=== PATIENT | male | born 1980 | race African-American/Black ===

== ENCOUNTER 2017-06-07 18:43 | Emergency (ER) | payer SELFPAY ==
[~2017-06-07] VITALS: Ht 187.9 cm; Wt 102.5 kg
[2017-06-07] MEDS ORDERED: Motrin,Rufen800 MG PO (19:18)
[2017-06-07] MEDS ORDERED: AUGMENTIN 875875 MG PO (19:18)
== END 2017-06-07 20:53 | disposition home or self-care (01) ==
LOC: ED 18:43
DX: K08.89 Other specified disorders of teeth and supporting structures (principal); F17.200 Nicotine dependence, unspecified, uncomplicated

== ENCOUNTER → 2021-09-04 | Outpatient (CLI) | payer OTHER ==
[~2021-09-04] MED LIST: AUGMENTIN 875875 MG PO; Motrin,Rufen800 MG PO
== END | disposition home or self-care (01) ==
LOC: COVID19 15:53
PROVIDERS: ATTEND Internal Medicine
DX: U07.1 COVID-19 (principal)

== ENCOUNTER 2022-07-15 17:29 | Emergency (ER) | payer OTHER ==
[~2022-07-15] VITALS: Ht 187.9 cm; Wt 108.9 kg
[2022-07-15 20:44] LABS: BASO % 0.5 % (0.0-1.0); EOS # 0.1 10*3/uL (0.0-0.4); EOS % 2.4 % (1.0-4.0); HEMATOCRIT 40.2 % (42.0-52.0); LYMPH # 1.5 10*3/uL (1.3-4.4); LYMPH % 25.3 % (27.0-41.0); MEAN CELL VOLUME 89.3 fl (80.0-94.0); MEAN CORPUSCULAR HGB 28.2 pg (27.0-31.0); MEAN CORPUSCULAR HGB CONC 31.6 g/dl (33.0-37.0); MEAN PLATELET VOLUME 10.1 fl (9.6-12.3); MONO # 0.7 10*3/uL (0.1-1.0); MONO % 12.4 % (3.0-9.0); NEUT # 3.4 10*3/uL (2.3-7.9); NEUT % 59.2 % (47.0-73.0); PLATELET COUNT AUTOMATED 225 10*3/uL (130-400); RED CELL DISTRI WIDTH 13.5 % (0-14.5); WHITE BLOOD COUNT 5.7 10*3/uL (4.8-10.8)
[2022-07-15 21:03] LABS: ALKALINE PHOSPHATASE 75 U/L (45-117); BUN 7 mg/dl (7-24); CHLORIDE 106 mmol/L (98-107); CREATININE 1.06 mg/dL (0.70-1.30); LIPASE 73 U/L (73-393); SGOT/AST 21 IU/L (3-35); SGPT/ALT 33 U/L (12-78); SODIUM 142 mmol/L (136-145); TOTAL PROTEIN 8.1 gm/dL (6.4-8.2)
[2022-07-15] MEDS ORDERED: CLINDAMYCIN HC300 MG PO (21:39)
== END 2022-07-15 21:52 | disposition home or self-care (01) ==
LOC: ED 17:29
PROVIDERS: Family Medicine
DX: K02.9 Dental caries, unspecified (principal); Z20.822 Contact with and (suspected) exposure to COVID-19

== ENCOUNTER 2023-05-14 14:41 | Emergency (ER) | payer OTHER ==
[~2023-05-14] VITALS: Wt 108.9 kg
[~2023-05-14 14:41] MED LIST changes: +CLINDAMYCIN HC300 MG PO
== END 2023-05-14 20:24 | disposition home or self-care (01) ==
LOC: ED 14:41
DX: M12.811 Other specific arthropathies, not elsewhere classified, right shoulder (principal); G43.909 Migraine, unspecified, not intractable, without status migrainosus; I10 Essential (primary) hypertension